=== PATIENT | female | born 1965 | race Asian ===

== ENCOUNTER 2018-09-13 08:00 | Outpatient (CLI) | payer MEDICAID | END 2018-09-13 23:59 | disposition home or self-care (01) | LOC: D.MAMMO 08:00 | PROVIDERS: ATTEND Nurse Practitioner | DX: Z12.31 Encounter for screening mammogram for malignant neoplasm of breast (principal) ==

== ENCOUNTER 2020-08-17 09:15 | Outpatient (CLI) | payer OTHER | END 2020-08-17 23:59 | LOC: D.MAMMO 09:15 | PROVIDERS: ATTEND Nurse Practitioner | DX: Z12.31 Encounter for screening mammogram for malignant neoplasm of breast (principal) ==